=== PATIENT | female | born 1960 | race Hispanic/Latino ===

== ENCOUNTER 2019-03-05 14:13 | Outpatient (CLI) | payer MEDICARE ==
[~2019-03-05 14:13] MED LIST: Gadobenate Dimeglumine 529 MG/1 ML (20ML VIAL) ONE
[2019-03-05 16:05] LABS: Estimated GFR-MDRD - POC Greater than 90
--- NOTE | 2019-03-05 16:39 | MRI ---
MRI Brain W WO Con: 03/05/2019 12:00 AM CLINICAL HISTORY: Acute, non intractable headache. COMPARISON: None. FINDINGS: Extra axial spaces: Normal in size and morphology for the patient's age. Acute infarction: None. Ventricular system: Normal in size and morphology for the patient's age. Basal cisterns: Normal. Cerebral parenchyma: Microvascular ischemic changes. Midline shift: None. Cerebellum: Normal. Brainstem: Normal. Paranasal sinuses:Clear Intraaxial Enhancement: None IMPRESSION:No acute intracranial abnormality.
== END 2019-03-05 14:14 | disposition home or self-care (01) ==
LOC: BICMRI 14:13
PROVIDERS: ATTEND Physician Assistant
DX: R51 Headache (principal)
CPT/HCPCS: 70553; 82565; A9577

== ENCOUNTER 2019-04-03 09:19 | Outpatient (CLI) | payer MEDICARE ==
--- NOTE | 2019-04-03 09:43 | MMO ---
Bilateral MAMMO Bilat Screen [facility]. CLINICAL HISTORY: Patient is 58 years old and is seen for screening. The patient has no family history of breast cancer. The patient has no personal history of cancer. VIEWS: The views performed were: bilateral craniocaudal with tomosynthesis and bilateral mediolateral oblique with tomosynthesis. FILMS COMPARED: The present examination has been compared to prior imaging studies performed at [facility] on 02/10/2014, 02/11/2015, 02/13/2016 and 02/14/2017. MAMMOGRAM FINDINGS: There are scattered fibroglandular densities. There are no suspicious masses, suspicious calcifications, or new areas of architectural distortion. IMPRESSION: THERE IS NO MAMMOGRAPHIC EVIDENCE OF MALIGNANCY. A ROUTINE FOLLOW-UP MAMMOGRAM IN 1 YEAR IS RECOMMENDED. THE RESULTS OF THIS EXAM WERE SENT TO THE PATIENT. ACR BI-RADS Category 1 - Negative MAMMOGRAPHY NOTE: 1. A negative mammogram report should not delay a biopsy if a dominant of clinically suspicious mass is present. 2. Approximately 10% to 15% of breast cancers are not detected by mammography. 3. Adenosis and dense breasts may obscure an underlying neoplasm.
== END 2019-04-03 09:20 | disposition home or self-care (01) ==
LOC: BICMAMMO 09:19
PROVIDERS: ATTEND Physician Assistant
DX: Z12.31 Encounter for screening mammogram for malignant neoplasm of breast (principal)
CPT/HCPCS: 77063; 77067

== ENCOUNTER 2020-05-22 00:51 | Observation (INO) | payer MEDICARE ==
[2020-05-22 02:23] LABS: Troponin I Less than 0.010 ng/mL (< 0.028)
[2020-05-22] MEDS ORDERED: Dextrose 5% in Water 1,000 ML IV PRN (02:36)
[2020-05-22] MEDS ORDERED: Dextrose 50% Abboject 50 ML SYRINGE SLOW IVP PRN (02:36)
[2020-05-22 03:48] VITALS: BMI 26.9
--- NOTE | 2020-05-22 04:03 | HP ---
REASON FOR ADMISSION: Left-sided weakness and left chest burning-like sensation. HISTORY OF PRESENT ILLNESS: This is a 59-year-old female patient who is presenting with complaining of left-sided weakness, more in the upper extremity than the lower extremity. This weakness did resolve, but also she reported a few months sensation of chest discomfort described as burning like in nature, radiating to her left scapular area, radiating to her left arm. She described arm as getting tight and squeezed. The burning sensation is off and on, no exacerbating factors, no relieving factor, associated sometimes with some shortness of breath, not related to activity, can occur at rest. Today, the sensation was worse, which prompted her to go to the ER. Of note, the patient did describe low sugar levels of 50 mg/dL. PAST MEDICAL HISTORY: 1. Diabetes. 2. High blood pressure. 3. 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 SOCIAL HISTORY: She does not smoke. Does not drink alcohol. FAMILY HISTORY: Noncontributory. ALLERGIES: TO CODEINE WHICH GIVES HER A BURNING SENSATION IN HER BODY. REVIEW OF SYSTEMS: All systems reviewed except the above mentioned, found to be negative. PHYSICAL EXAMINATION: GENERAL: Awake, alert, oriented, does not appear in distress. VITAL SIGNS: Her blood pressure is 139/82, heart rate of 82, temperature is 98.2, saturating 99% on room air. HEENT: Head is atraumatic and normocephalic. Pupils are equal, reactive. Extraocular movements are intact. Nonicteric sclerae. Well injected conjunctivae. Oral mucosa normal. Nasal mucosa normal. NECK: Supple. No adenopathy. No murmur. Thyroid is not palpable. Trachea is midline. No supraclavicular adenopathy. HEART: S1, S2 regular. No murmur. No gallops. No friction rubs. No displacement of PMI. LUNGS: Clear to auscultation bilaterally. No wheezes or rhonchi. No crackles. ABDOMEN: Bowel sounds are positive. Tenderness upon palpation of the epigastric area. I can reproduce some of the burning sensation that she is experiencing. I am unable to reproduce chest pain whenever I put pressure on the left side of her chest. No lower extremity edema. No cyanosis noted. NEUROLOGIC: Cranial nerves 2 through 12 within normal limits. Normal motor function. Normal sensory function. LABORATORY DATA: Blood work shows WBC of 10.6, hemoglobin of 11.2, platelets . INR 1. Sodium of 142, potassium of 3.4, bicarb of 21, creatinine 0.67. A CT of the brain shows no acute disease. EKG pending. ASSESSMENT AND PLAN: This is a 59-year-old female patient presenting with multiple complaints, mainly burning involving her left chest area radiating to her back. Also today, a transient weakness of her left upper and lower extremity. The burning sensation has been ongoing for more than one month, but today as per her, it was worse. Cardiac: The patient will be admitted to telemetry, and we will cycle cardiac enzymes. We will schedule for a nuclear stress test in the morning. Neuro: The patient might have had a transient ischemic attack. We will schedule her for an MRI of the brain, carotid Doppler, echocardiogram. She will be on aspirin, and we will practice permissive hypertension. Endocrinology: The patient did report episodes of hypoglycemia. We will do glucose [id number] and will use an insulin sliding scale if need be. GI: I am able to elicit some of the pain that she is complaining of when I palpate her epigastric area. This pain might be GI related. For that reason, she will be on IV famotidine. I did discuss with her the plan of care. She is in agreement, and she wishes to be a full code. Job ID: [id number]
[2020-05-22 04:59] LABS: #Eosinphils 0.2 thou/uL (0.0-0.7); #Lymphocytes 2.7 thou/uL (1.20-3.40); #Monocytes 0.5 thou/uL (0.11-0.59); %Basophils 0.1 % (0.0-1.0); %Eosinophils 2.3 % (0.0-10.0); %Lymphocytes 32.1 % (21.0-51.0); %Monocytes 6.3 % (0.0-10.0); %Neutrophils 59.2 % (42.0-75.0); Mean Corpuscular HGB CONC 31.3 g/dL (32.0-36.0); Mean Corpuscular Hemoglobin 27.5 pg (27.0-31.0); Mean Corpuscular Volume 87.9 fL (78.0-98.0); Mean Platelet Volume 7.5 fL (7.4-10.4); Platelet Count 350 thou/uL (130-400); RBC Distribution Width 11.6 % (11.5-14.5); Red Blood Cell (RBC) Count 4.37 mill/uL (4.20-5.40); White Blood Cell (WBC) Count 8.5 thou/uL (4.8-10.8)
[2020-05-22 05:14] LABS: Anion Gap 10 mmol/L (10-20); BUN (Urea Nitrogen) 8 mg/dL (9.8-20.1); Calc. Creatinine Clearance 97 mL/min (70-130); Calcium 8.8 mg/dL (7.8-10.44); Carbon Dioxide 24 mmol/L (23-31); Cardiac Risk 2.6 (Less than 4.5); Chloride 109 mmol/L (98-107); Cholesterol 78 mg/dl (< 200 Desired); Estimated GFR-MDRD Greater than 90; Glucose 83 mg/dL (80-115); HDL Cholesterol 30 mg/dL (>60 Neg Risk); LDL Cholesterol, Calculated 36 mg/dL; Potassium 3.7 mmol/L (3.5-5.1); Sodium 139 mmol/L (136-145); Triglycerides 59 mg/dL (Less than 150)
[2020-05-22 05:16] LABS: Troponin I Less than 0.010 ng/mL (< 0.028)
[2020-05-22] MEDS: Aspirin 81 mg Enteric Coated Tablet PO SCH (08:56)
[2020-05-22] MEDS: Famotidine/PF 20 mg/2ml Vial SLOW IVP SCH ×2 (08:57→20:44)
[2020-05-22] MEDS ORDERED: Gabapentin 100 MG CAP PO SCH ×2 (09:41→09:45)
[2020-05-22] MEDS ORDERED: Calcium Carbonate 500 MG ChewTAB PO PRN (09:42)
--- NOTE | 2020-05-22 10:32 | MRI ---
MRI brain noncontrast HISTORY: TIA. Burning sensation throughout left arm and neck. FINDINGS: There is no evidence of acute intracranial hemorrhage or infarct. The ventricles appear nor mal in size, shape and position. There is no mass effect or shift of midline structures. Visualized paranasal sinuses remain well aerated. IMPRESSION : No abnormalities are demonstrated.
--- NOTE | 2020-05-22 11:12 | MRI ---
MRI cervical spine noncontrast HISTORY: Paresthesias. Burning sensation throughout the left arm and neck. FINDINGS: Vertebral body heights and alignment are maintained. Bone marrow signal within normal limit s. The spinal cord throughout the cervical levels has a normal appearance without evidence of compressio n, expansion, or abnormal signal. The central canal and neural foramina are patent. Minimal osteophytosis. IMPRESSION : No evidence of neural compression. No abnormalities are demonstrated.
--- NOTE | 2020-05-22 11:27 | ULT ---
ULTRASOUND DOPPLER DUPLEX CAROTID: DATE: 05/22/2020 HISTORY: 59-year-old female with left upper extremity weakness: TIA TECHNIQUE: Grayscale, color-flow, and spectral analysis, of major arteries of neck. FINDINGS: RIGHT: Atherosclerotic plaque:None. Mild intimal thickening present. Peak systolic and end diastolic velocities: CCA:85 cm/s, 25 cm/s ICA:80 cm/s, 40 cm/s ICA/CCA ratio:1.0 Vertebral artery flow:Antegrade LEFT: Atherosclerotic plaque:None. Mild intimal thickening present. Peak systolic and end diastolic velocities: CCA:75 cm/s, 25 cm/s ICA:75 cm/s, 20 cm/s ICA/CCA ratio:1.0 Vertebral artery flow:Antegrade IMPRESSION: No hemodynamically significant stenosis.
--- NOTE | 2020-05-22 13:26 | CON ---
NEUROLOGY CONSULTATION DATE OF CONSULTATION: 05/22/2020 REASON FOR CONSULTATION: Left-sided weakness and left-sided chest pain HISTORY OF PRESENT ILLNESS: Ms. Jaqueline Guadalupe is a 59-year-old female with history significant for diabetes, hypertension, and tumor of the large intestine , presented with left-sided weakness, more in the upper extremities than in the lower extremity. The weakness did resolve, but she also has intermittent sensation of burning chest pain radiating to the left shoulder and left arm. The patient denies any nausea, vomiting, headache, abdominal pain, vertigo, blurred vision, loss of vision and loss of consciousness associated with the episode. REVIEW OF SYSTEMS: All 14 systems were reviewed and were negative except the pertinent positive and negative mentioned in the HPI. PAST MEDICAL HISTORY: Diabetes, hypertension, tumor of the large intestine. SOCIAL HISTORY: Denies smoking, alcohol, or illegal drug use. FAMILY HISTORY: The family history is not significant for stroke. ALLERGIES: CODEINE. PHYSICAL EXAMINATION: GENERAL: Alert, awake female in no acute distress. VITAL SIGNS: Blood pressure 139/80, pulse 80, respiratory rate 18. CVS: Regular rate and rhythm. CHEST: Clear. ABDOMEN: Soft. NECK: No carotid bruit. NEUROLOGICAL: Mental status: The patient is alert and oriented to person, place, and time. Cranial nerves 2 through 12 intact. Motor, muscle tone and bulk are normal. Strength: Moving all 4 extremities equally and symmetrically. Cerebellar intact. Sensory intact. GAIT: Deferred due to patient's safety reasons. DATA REVIEWED: I reviewed the MRI of the brain, which did not reveal any acute intracranial pathology. Carotid Dopplers were also unremarkable. ASSESSMENT AND PLAN: Ms. Jaqueline Guadalupe is a 59-year-old female, who was consulted for an episode of chest pain and left-sided weakness, which has now almost resolved. She does have risk factors for stroke, most likely a transient ischemic attack. MRI of the brain reviewed which was negative for acute intracranial process. Carotid Doppler did not reveal any hemodynamically significant stenosis. Neuro checks every 4 hours. Recommend aspirin and high-intensity statin for secondary stroke prevention. Check fasting lipid panel, hemoglobin A1c, TSH, vitamin B12, folic acid, and TSH. Strict control of the blood pressure and blood glucose. Continue home medications. Continue medical management. Cardiology on board for chest pain.. Echocardiogram pending. PT/OT/Speech. We will continue to follow. Thank you for the consult. Job ID: [id number] MTDD
[2020-05-22] MEDS: Acetaminophen 325 MG TAB PO PRN (16:49)
--- NOTE | 2020-05-22 18:41 | PDOC.EVN ---
Event Note - Event Note Event Note: The patent reported burning in her abdomen radiating to her chest and left shoulder. SHe also states her left arm was weak. She also complains of headache but no nausea. She also had some dizziness earlier this morning Patient denies chest pain on exertion Stress test did not happen today because patient ate breakfast this morning She reports travel to [place] three weeks ago and had negative COVId test there and had another COVID test 9 days ago at [place], but doesn't know results. Denies fevers or chills. Has a dry cough that is worst with talking Vitals: stable gen: AXO x 3 CVS: RRR, no murmurs, rubs, gallops Lungs: CTAB Abdomen: + BS, soft, nontender, nondistended Ext: no edema Neuro: CN II - XII intact. No focal deficits. 5/5 strength in upper and lower extremities. She has full ROM of arms and legs Labs; normal. Trop negative MRI brain: no stroke MRI cervical spine: no stenosis This is 59 year old who presented with chest pain/abdominal pain Chest pain/abdominal pain - appears to be more GERD related. She was given protonix and stated that her burning sensation had improved - patient was offered discharge, but is worried about her heart. She wants to stay for stress test. Will make NPO after midnight Dizziness - MRI has ruled out stroke - currently it has resolved Left arm weakness - no weakness objective on exam. No pronator drift. MRI c spine negative for arthritis Headache - given tylenol Cough - possibly GERD related - continue PPI
[2020-05-22] MEDS: HumaLOG 300 UNITS/3 ML VIAL SC PRN ×2 (19:17→21:14)
[2020-05-22] MEDS ORDERED: Benzonatate 100 MG CAP PO PRN (19:56)
[2020-05-23] MEDS: Acetaminophen 325 MG TAB PO PRN ×2 (01:40→12:11)
[2020-05-23] MEDS ORDERED: Gabapentin 100 MG CAP PO SCH (09:00)
[2020-05-23 11:58] VITALS: BP 142/84; TEMP 98.2
[2020-05-23] MEDS: Aspirin 81 mg Enteric Coated Tablet PO SCH (12:11)
[2020-05-23] MEDS: Famotidine/PF 20 mg/2ml Vial SLOW IVP SCH (12:11)
[2020-05-23] MEDS: HumaLOG 300 UNITS/3 ML VIAL SC PRN ×2 (12:12→17:15)
[2020-05-23] MEDS ORDERED: ADENOSINE 60 MG/20 ML VIAL ONE (12:58)
--- NOTE | 2020-05-23 13:07 | NM ---
NUCLEAR MEDICINE CARDIAC MYOCARDIAL PERFUSION SPECT EJECTION FRACTION STUDY WALL MOTION CINE: DATE: 05/23/2020 HISTORY: 59 year old diabetic, hypertensive female presents with chest pain and dyspnea TECHNIQUE: Number of days: 1 Rest study: Technetium 99m-sestamibi (Cardiolite) dose: 9.1 mCi Pharmacologic stress: Adenosine dose: 34.7 mg Stress study: Technetium 99m-sestamibi (Cardiolite) dose: 28.4 mCi FINDINGS: CARDIAC (MYOCARDIAL PERFUSION) SPECT There are no reversible myocardial perfusion defects. EJECTION FRACTION STUDY Left ventricular EF = 83 % WALL MOTION CINE Normal. No chamber dilation. IMPRESSION: No evidence of reversible ischemia.
[2020-05-23] MEDS ORDERED: glipiZIDE 10 MG TAB PO SCH (16:30)
[2020-05-23] MEDS ORDERED: metFORMIN 500 MG TAB PO SCH (17:00)
--- NOTE | 2020-05-23 19:10 | DIS ---
DATE OF ADMISSION: 05/22/2020 DATE OF DISCHARGE: 05/23/2020 PRIMARY CARE PROVIDER: Gila Ibarra PA-C DISCHARGE DIAGNOSES: 1. Transient ischemic attack. 2. Chest pain most likely secondary to gastroesophageal reflux disease. CONSULTATIONS DURING THIS HOSPITALIZATION: Neurology, Dr. Bennett. CONDITION OF THE PATIENT ON THE DAY OF DISCHARGE: Stable. I assessed Ms. Guadalupe on the day of discharge. She reports chest pain is better. Vital signs are stable. S1 and S2 are heard, regular. Lungs are clear to auscultation bilaterally. DISCHARGE MEDICATIONS: She has been started on Lipitor 20 mg at bedtime. Otherwise, no change was made to her pre-admission home medications, which include aspirin 81 mg daily, glipizide 10 mg 2 times a day, Tresiba 20 units daily, losartan 50 mg daily, Glucophage 1000 mg 2 times a day, and calcium carbonate 500 mg daily. HOSPITAL COURSE: Ms. Guadalupe is a pleasant 59-year-old lady, who was admitted to [facility] on May 22, 2020 for chest pain and transient weakness of her left upper and lower extremity. She was seen by Neurology Service. MRI of the brain did not show any acute intracranial abnormality. Carotid Dopplers did not show any hemodynamically significant stenosis. Cervical spine MRI did not show any evidence of neural compression. Pulmonary embolism was ruled out with a negative D-dimer. Nuclear stress test did not show any evidence of reversible ischemia. Left ventricular ejection fraction was estimated at 83%. She also had 2D echocardiogram, which showed left ventricular ejection fraction estimated at 60% to 65%, normal right ventricular size and function, normal size left atrium, normal size right atrium, structurally normal mitral valve and mild mitral annular calcification. She was started on PPI for suspected gastroesophageal reflux disease. Her chest pain improved. She is being discharged home in a stable condition. POST-ACUTE CARE FOLLOWUP: With primary care provider in 3 days and with Neurology Service in 2 weeks. DIET: Diabetic and heart healthy. ACTIVITY: No restrictions. DISCHARGE DESTINATION: Home. Many thanks for allowing me to participate in your patient's care. Please feel free to contact me with any questions or concerns. Fasting lipid profile during this hospitalization showed triglycerides 59, cholesterol 78, LDL cholesterol 36, and HDL cholesterol 30. She is advised to have her liver function tests followed through her primary care provider's office. Job ID: [id number]
[2020-05-23] MEDS ORDERED: Atorvastatin Calcium 20 MG TAB PO SCH (21:00)
[2020-05-24] MEDS ORDERED: Calcium Carbonate 500 MG TAB PO SCH (09:00)
[2020-05-24] MEDS ORDERED: INSULIN DEGLUDEC 20 UNIT SC SCH (09:00)
[2020-05-24] MEDS ORDERED: Losartan 25 MG TAB PO SCH (09:00)
[2020-05-24] MEDS ORDERED: Insulin Glargine 20 UNITS in Pre-Filled Syringe 1 EACH SC SCH (09:00)
== END 2020-05-23 17:20 | disposition home or self-care (01) ==
LOC: ERS 00:51 → 2SE 01:44
PROVIDERS: ADMIT Internal Medicine; ATTEND Internal Medicine
DX: G45.9 Transient cerebral ischemic attack, unspecified (principal); R07.9 Chest pain, unspecified; K21.9 Gastro-esophageal reflux disease without esophagitis; E11.9 Type 2 diabetes mellitus without complications; I10 Essential (primary) hypertension; Z79.4 Long term (current) use of insulin; Z79.82 Long term (current) use of aspirin; Z79.899 Other long term (current) drug therapy; Z88.5 Allergy status to narcotic agent
CPT/HCPCS: 70551; 72141; 78452; 80048; 80061; 82962 ×2; 84484 ×2; 85025; 85379; 90732; 93017; 93306; 93880; 97139 ×3; 99285; A9500; G0009; 36415; 36416; 90471; 96374; 96376; G0378; J0153; S0028

== ENCOUNTER 2020-06-04 07:24 | Outpatient (CLI) | payer MEDICARE ==
--- NOTE | 2020-06-04 07:46 | ULT ---
Renal sonogram HISTORY: Chronic renal insufficiency. Right kidney measures up to 9.5 cm length and the left 9.8 cm. Each has a normal sonographic appearan ce without evidence of mass, stone, or hydronephrosis. Urinary bladder is unremarkable. No free fluid. IMPRESSION : No abnormalities are demonstrated.
== END 2020-06-04 07:25 | disposition home or self-care (01) ==
LOC: BICULT 07:24
PROVIDERS: ATTEND Internal Medicine Nephrology
DX: N18.2 Chronic kidney disease, stage 2 (mild) (principal); M54.9 Dorsalgia, unspecified
CPT/HCPCS: 76770

== ENCOUNTER 2020-10-01 10:05 | Outpatient (CLI) | payer MEDICARE ==
[2020-10-01 10:57] LABS: Estimated GFR-MDRD - POC Greater than 90
--- NOTE | 2020-10-01 15:05 | CT ---
CT ABDOMEN AND PELVIS WITH IV CONTRAST: Date: 10/01/2020 INDICATION: History of abdominal pain. COMPARISON: Prior exam dated 04/25/2018 and 02/26/2016. FINDINGS: There is a new pleural based pulmonary nodule within the posterolateral right lower lobe measuring 9. 0 mm on image 1 of series 2 that is incompletely characterized. No focal hepatic lesion is evident. Gallbladder is surgically absent. The pancreas, adrenal glands, spleen, and kidneys reveal no definite acute abnormality. There is a stable 1.5 cm lobulated hypodensity involving the left kidney that appears septated. No ne w focal renal lesion is evident. No free fluid or enlarged lymph nodes are evident. The small and large bowel reveal no acute abnormality. The appendix is not definitely seen. No free f luid is evident. Reproductive structures are unremarkable appearing. The bladder is partially decompr essed. The rectum and perirectal soft tissues are unremarkable appearing. There is diffuse osteopenia. IMPRESSION: 1. No CT explanation for patient's abdominal pain. 2. Septated cystic lesion involving the posterior left mid kidney is stable in size measuring 1.5 cm . 3. New pleural based nodule involving the posterior right lower lobe may reflect an area of dependen t subpleural subsegmental atelectasis. However, a new pulmonary nodule in the right lower lobe cannot be entirely excluded. Nonemergent follow-up CT of the thorax is recommended to document stability or resolution. CODE T. CODE LN. POS: [facility]
== END 2020-10-01 10:06 | disposition home or self-care (01) ==
LOC: BICCT 10:05
PROVIDERS: ATTEND Internal Medicine
DX: R10.84 Generalized abdominal pain (principal); R14.0 Abdominal distension (gaseous); N28.1 Cyst of kidney, acquired; R91.1 Solitary pulmonary nodule; Z85.038 Personal history of other malignant neoplasm of large intestine
CPT/HCPCS: 74177; 82565

== ENCOUNTER 2020-12-23 02:34 | Observation (INO) | payer MEDICARE, SELFPAY ==
[2020-12-23] MEDS ORDERED: Morphine 4 MG/ML VIAL SLOW IVP PRN (04:58)
[2020-12-23] MEDS ORDERED: Dextrose 50% Abboject 50 ML SYRINGE SLOW IVP PRN (04:59)
[2020-12-23] MEDS ORDERED: Dextrose 5% in Water 1,000 ML IV PRN (04:59)
[2020-12-23] MEDS ORDERED: Morphine 4 MG/ML VIAL SLOW IVP SCH (05:00)
[2020-12-23] MEDS ORDERED: Nitroglycerin 0.4 MG TAB (25 Tab Bottle) SL PRN (05:03)
--- NOTE | 2020-12-23 05:07 | PDOC.HHP ---
Hospitalist HPI Chest pain History of Present Illness: Patient is a 60 year old female with PMH HTN, DM, HLD who presents as transfer from [place] for chest pain. Patient has a year long history of on-and-off chest pain, however today she developed substernal chest pain that radiates to L neck and L arm, epigastric, burning/squeezing. Started one hour before arriving at ED. Patient has seen Dr Hamm and has been managed medically, unsure if she has had stress test. Has not had heart cath. Patient received aspirin and nitroglycerine and fentanyl with temporary relief of pain to 1/10 but is now back to 8/10 4 hours later. Patient EKG negative for acute STEMI, troponin x 1 negative, transferred here for further workup and care. Allergies/Adverse Reactions: Allergy/AdvReac Type Severity Reaction Status Date / Time codeine Allergy Intermediate ABDOMINAL Verified 02/26/16 19:21 PAIN, FLUSHED Home Medications: Medication Instructions Recorded Confirmed Type metFORMIN HCl [Glucophage] 1,000 mg PO BID-WM 02/08/16 05/22/20 History Aspirin [Ecotrin Low Strength] 81 mg PO DAILY 05/23/20 05/23/20 History Atorvastatin Calcium [Lipitor] 20 mg PO HS #30 tab 05/23/20 Rx Calcium Carbonate [Calcium] 500 mg PO DAILY #0 05/23/20 05/23/20 Rx Insulin Degludec [Tresiba 20 units SC DAILY 05/23/20 05/23/20 History Flextouch U-200] Losartan Potassium [Cozaar] 50 mg PO DAILY 05/23/20 05/23/20 History Pantoprazole [Protonix] 40 mg PO DAILY #30 tab 05/23/20 Rx glipiZIDE [Glipizide] 10 mg PO BID 05/23/20 05/23/20 History Past History: PMHx: HLD, DM PSHx: polyp removal, cholecystectomy, tubal ligation, benign tumor removal FHx: reviewed and not relevant Social: denies tobacco, alcohol, drug use Hospitalist HPI ROS Constitutional: denies: fever, chills, sweats, weakness, malaise, other Eyes: denies: pain, vision change, conjunctivae inflammation, eyelid inflammation, redness, other ENT: denies: ear pain, ear discharge, nose pain, nose discharge, nose congestion, mouth pain, mouth swelling, throat pain, throat swelling, other Respiratory: denies: cough, dry, shortness of breath, hemoptysis, SOB with excertion, pleuritic pain, sputum, wheezing, other Cardiovascular: reports: chest pain. denies: palpitations, orthopnea, paroxysmal noc. dyspnea, edema, light headedness, other Gastrointestinal: denies: nausea, vomiting, abdominal pain, diarrhea, constipation, melena, hematochezia, other Genitourinary: denies: dysuria, frequency, incontinence, hematuria, retention, other Musculoskeletal: reports: neck pain, arm pain. denies: shoulder pain, back pain, hand pain, leg pain, foot pain, other Skin: denies: rash, lesions, armando, bruising, other Neurological: denies: weakness, numbness, incoordination, change in speech, confusion, seizures, other All other systems reviewed; all pertinent +/- noted in HPI/Subj Hospitalist Exam Vitals: 0113: BP 154/91, pulse 78, rr 16, o2 98% on RA General Appearance: NAD, awake alert Eye: PERRL, anicteric sclera ENT: normocephalic atraumatic, no oropharyngeal lesions, moist mucosa Neck: supple, symmetric, no JVD, no thyromegaly, no lymphadenopathy, no carotid bruit Heart: RRR, no murmur, no gallops, no rubs, normal peripheral pulses Respiratory: CTAB, no wheezes, no rales, no ronchi, normal chest expansion, no tachypnea, normal percussion Gastrointestinal: soft, non-tender, non-distended, normal bowel sounds, no palpable masses, no hepatomegaly, no splenomegaly, no bruit Extremities: no cyanosis, no clubbing, no edema Skin: normal turgor, no lesions, no rashes Neurological: cranial nerve grossly intact, normal sensation to touch, no weakness, no focal deficits, no new deficit Musculoskeletal: normal tone, normal strength, no muscle wasting Psychiatric: normal affect, normal behavior, A&O x 3 Hospitalist Results Additional comment: transfer documents reviewed including EKG, labs, ED provider documents EKG NSR rate [address] changes, Hospitalist H&P A/P Plan: Patient is a 60 year old female with PMH HTN, DM, HLD who presents as transfer from [place] for chest pain. # chest pain - intermittent, current episode worse than normal and radiates to neck and arm, patient has seen Dr Hamm and has been managed medically, no history of heart cath that patient can remember. Patient EKG negative for acute STEMI, troponin x 1 negative, received ASA, nitro, transferred here for further workup and care. - admit to telemetry - asa, statin, nitropaste, morphine PRN - NPO - consult cardiology # DM - takes long [id number] units daily - start SSI + half dose insulin while NPO, raise to full dose once eating # HTN - PRN medications available, resume home medications once med rec complete # HLD - statin DVT/GI ppx
[2020-12-23 05:44] LABS: #Eosinphils 0.1 thou/uL (0.0-0.7); #Lymphocytes 2.4 thou/uL (1.20-3.40); #Monocytes 0.5 thou/uL (0.11-0.59); %Basophils 0.1 % (0.0-1.0); %Eosinophils 0.6 % (0.0-10.0); %Lymphocytes 24.4 % (21.0-51.0); %Monocytes 4.8 % (0.0-10.0); %Neutrophils 70.1 % (42.0-75.0); Hemoglobin 12.8 g/dL (12.0-16.0); Mean Corpuscular HGB CONC 30.9 g/dL (32.0-36.0); Mean Corpuscular Hemoglobin 26.3 pg (27.0-31.0); Mean Corpuscular Volume 85.4 fL (78.0-98.0); Mean Platelet Volume 7.6 fL (7.4-10.4); Platelet Count 326 thou/uL (130-400); RBC Distribution Width 11.2 % (11.5-14.5); Red Blood Cell (RBC) Count 4.86 mill/uL (4.20-5.40); White Blood Cell (WBC) Count 9.9 thou/uL (4.8-10.8)
[2020-12-23] MEDS: Nitroglycerin 2% Ointment 1 INCH/1 GM Packet TOP SCH ×3 (05:46→15:32)
[2020-12-23] MEDS: Acetaminophen 325 MG TAB PO PRN ×2 (05:46→15:32)
[2020-12-23] MEDS: HumaLOG 300 UNITS/3 ML VIAL SC PRN ×3 (06:01→22:17)
[2020-12-23 06:04] LABS: Anion Gap 9 mmol/L (10-20); BUN (Urea Nitrogen) 10 mg/dL (9.8-20.1); Calc. Creatinine Clearance 0 mL/min (70-130); Carbon Dioxide 28 mmol/L (23-31); Chloride 105 mmol/L (98-107); Glucose 256 mg/dL (80-115); Potassium 3.9 mmol/L (3.5-5.1); Sodium 138 mmol/L (136-145)
[2020-12-23 06:10] LABS: Troponin I Less than 0.010 ng/mL (< 0.028)
[2020-12-23 08:29] VITALS: BMI 26.4
[2020-12-23] MEDS ORDERED: Meclizine HCl 12.5 MG TAB PO PRN (08:43)
[2020-12-23] MEDS ORDERED: Bisacodyl 5 MG TAB PO PRN (08:44)
[2020-12-23] MEDS ORDERED: Zolpidem Tartrate 5 MG TAB PO PRN (08:44)
[2020-12-23] MEDS ORDERED: hydrALAZINE 20 MG/ML VIAL SLOW IVP PRN (08:44)
[2020-12-23] MEDS ORDERED: Senokot S 8.6-50 MG TAB PO PRN (08:44)
[2020-12-23] MEDS ORDERED: Benzonatate 100 MG CAP PO PRN (08:44)
[2020-12-23] MEDS ORDERED: Ondansetron PF 4 MG/2 ML Vial IVP PRN (08:44)
[2020-12-23] MEDS ORDERED: Sodium Chloride 0.65% Nasal 44 ML BOT EA NARE PRN (08:44)
[2020-12-23] MEDS ORDERED: Loperamide HCl 2 MG CAP PO PRN (08:44)
[2020-12-23] MEDS ORDERED: Calcium Carbonate 500 MG ChewTAB PO PRN (08:44)
[2020-12-23] MEDS ORDERED: Loratadine 10 MG TAB PO PRN (08:44)
[2020-12-23] MEDS ORDERED: Ondansetron ODT 4 MG TAB PO PRN (08:44)
[2020-12-23] MEDS ORDERED: Cepastat Lozenges 1 LOZ PO PRN (08:44)
[2020-12-23] MEDS ORDERED: GUAIFENESIN SF SOLN 200 MG/10 ML UDCUP PO PRN (08:44)
[2020-12-23] MEDS ORDERED: Losartan 25 MG TAB PO SCH (09:00)
[2020-12-23] MEDS ORDERED: Metoprolol Tartrate 25 MG TAB PO SCH (09:00)
[2020-12-23] MEDS: glipiZIDE 10 MG TAB PO SCH ×2 (09:00→22:10)
[2020-12-23] MEDS: Enoxaparin Sodium 40 MG/0.4 ML SYRINGE SC SCH (09:55)
[2020-12-23] MEDS: Aspirin Chewable 81 MG TAB PO SCH (09:56)
--- NOTE | 2020-12-23 13:10 | PDOC.HOSPP ---
- Subjective Encounter Date: 12/23/20 Encounter Time: 10:00 Subjective: Patient seen and examined. No new complaints. No overnight events, patient has chest wall discomfort, no radiation, - Objective Vital Signs & Weight: Vital Signs (12 hours) Temp Pulse Resp BP Pulse Ox 12/23/20 03:37 98.0 F 78 18 119/67 98 Weight Weight 135 lb 7 oz I&O: 12/22/20 12/23/20 12/24/20 06:59 06:59 06:59 Intake Total 70 Output Total 0 Balance 70 Result Diagrams: 12/23/20 05:38 12/23/20 05:38 Additional Labs: Accuchecks 12/23/20 12/23/20 11:13 05:33 POC Glucose 77 252 H Radiology Reviewed by me: Yes EKG Reviewed by me: Yes Hospitalist ROS - Review of Systems ENT: denies: ear pain, ear discharge, nose pain, nose discharge, nose congestion, mouth pain, mouth swelling, throat pain, throat swelling, other Respiratory: denies: cough, dry, shortness of breath, hemoptysis, SOB with excertion, pleuritic pain, sputum, wheezing, other Cardiovascular: denies: chest pain, palpitations, orthopnea, paroxysmal noc. dyspnea, edema, light headedness, other Gastrointestinal: denies: nausea, vomiting, abdominal pain, diarrhea, constipation, melena, hematochezia, other Genitourinary: denies: dysuria, frequency, incontinence, hematuria, retention, other Musculoskeletal: denies: neck pain, shoulder pain, arm pain, back pain, hand pain, leg pain, foot pain, other - Medication Medications: Active Medications Generic Name Dose Route Start Last Admin Trade Name Freq PRN Reason Stop Dose Admin Acetaminophen 650 mg 12/23/20 04:45 12/23/20 05:46 Acetaminophen 325 Mg Tab PO 650 mg Q6H PRN Administration headache, pain, fever Aspirin 81 mg 12/23/20 09:00 12/23/20 09:56 Aspirin Chewable 81 Mg Tab PO 81 mg DAILY ASHWINI Administration Enoxaparin Sodium 40 mg 12/23/20 09:00 12/23/20 09:55 Enoxaparin Sodium 40 Mg/0.4 Ml Syringe SC 40 mg 0900 ASHWINI Administration Insulin Human Lispro 0 units 12/23/20 04:59 12/23/20 06:01 Humalog 300 Units/3 Ml Vial SC 4 unit .MILD SLIDING SCALE PRN Administration Mild Correctional Scale Losartan Potassium 50 mg 12/23/20 09:00 12/23/20 09:56 Losartan 25 Mg Tab PO 50 mg DAILY ASHWINI Administration Metoprolol Tartrate 12.5 mg 12/23/20 09:00 12/23/20 09:57 Metoprolol Tartrate 25 Mg Tab PO 12.5 mg BID ASHWINI Administration Nitroglycerin 0.5 inch 12/23/20 06:00 12/23/20 05:46 Nitroglycerin 2% Ointment 1 Inch/1 Gm Packet TOP 0.5 inch Q8HR ASHWINI Administration Pantoprazole Sodium 40 mg 12/23/20 09:00 12/23/20 09:58 Pantoprazole 40 Mg Tab PO 40 mg DAILY ASHWINI Administration Hospitalist Exam Vitals: Vital Signs (12 hours) Temp Pulse Resp BP Pulse Ox 12/23/20 03:37 98.0 F 78 18 119/67 98 Weight Weight 135 lb 7 oz General Appearance: NAD, awake alert Eye: PERRL, anicteric sclera ENT: normocephalic atraumatic, no oropharyngeal lesions Neck: supple, symmetric, no JVD, no thyromegaly Heart: RRR, no murmur, no gallops, no rubs Respiratory: no wheezes, no rales, no ronchi Gastrointestinal: soft, non-tender, non-distended, normal bowel sounds Extremities: no cyanosis, no clubbing, no edema Skin: normal turgor, no lesions Neurological: no focal deficits Musculoskeletal: normal tone, normal strength Psychiatric: normal affect, normal behavior Hosp A/P (1) Chest pain Code(s): R07.9 - CHEST PAIN, UNSPECIFIED Status: Acute (2) Diabetes type 2, controlled Code(s): E11.9 - TYPE 2 DIABETES MELLITUS WITHOUT COMPLICATIONS Status: Chronic Qualifiers: Diabetes mellitus alf insulin use: with dedicated intermodal truck driver use Diabetes mellitus complication status: without complication Qualified Code(s): E11.9 - Type 2 diabetes mellitus without complications; Z79.4 - medical terminologist (current) use of insulin (3) Dyslipidemia Code(s): E78.5 - HYPERLIPIDEMIA, UNSPECIFIED Status: Chronic (4) Hypertension Code(s): I10 - ESSENTIAL (PRIMARY) HYPERTENSION Status: Chronic (5) GERD (gastroesophageal reflux disease) Code(s): K21.9 - GASTRO-ESOPHAGEAL REFLUX DISEASE WITHOUT ESOPHAGITIS Status: Chronic Qualifiers: Esophagitis presence: with esophagitis Esophagitis bleeding: without hemorrhage Qualified Code(s): K21.00 - Gastro-esophageal reflux disease with esophagitis, without bleeding - Plan old records reviewed/req, plan discussed w/ family Cardiology has been consulted, Further investigation will defer to cardiology If cardiology clears her then will consider discharge Medication reviewed and continue provide symptomatic and supportive care
--- NOTE | 2020-12-23 13:14 | PDOC.DS.DS ---
Provider Date of Admission: 12/23/20 04:19 Date of Discharge: 12/24/20 Admitting Provider: Mckay Barreto MD Consultations: Cardiology Primary Care Physician: JENNI Silverio Course Hospital Course: Patient was admitted for chest pain, her chest pain description was atypical and sounds like musculoskeletal, on admission EKG was negative for any acute ischemic changes, subsequently on telemetry floor telemetry remained unremarkable, she had serial cardiac enzymes which were negative, cardiology was consulted,. Cardiology evaluated this patient and cleared for discharge, no investigation planned, patient remained stable overnight, she did not any further chest pain. Patient seen and examined bedside today she will continue all her previous medication after discharge. Resuscitation Status: 12/23/20 05:03 Resuscitation Status Routine Resuscitation Status: FULL: Full Resuscitation Lab Results: 12/23/20 05:38 12/23/20 05:38 Abnormal Lab Results - Last 48 hrs 12/23/20 05:38: Anion Gap 9 L 12/23/20 05:38: MCH 26.3 L, MCHC 30.9 L, RDW 11.2 L, Neutrophils # 7.0 H Vitals: Vital Signs (12 hours) Temp Pulse Resp BP Pulse Ox 12/23/20 03:37 98.0 F 78 18 119/67 98 Weight Weight 135 lb 7 oz Physical Exam: The patient was seen and examined on the day of discharge. General Appearance: NAD, awake alert Eye: PERRL, anicteric sclera ENT: normocephalic atraumatic, no oropharyngeal lesions Neck: supple, symmetric, no JVD, no thyromegaly Respiratory: no wheezes, no rales, no ronchi Cardiovascular: RRR, no murmur, no gallops, no rubs Gastrointestinal: soft, non-tender, non-distended, normal bowel sounds Extremities: no cyanosis, no clubbing, no edema Skin: normal turgor, no lesions Neurological: no focal deficits Musculoskeletal: normal tone, normal strength PSYCH: normal affect, normal behavior, A&O x 3 Problem (1) Chest pain Code(s): R07.9 - CHEST PAIN, UNSPECIFIED Status: Resolved Plan: Due to musculoskeletal etiology (2) Diabetes type 2, controlled Code(s): E11.9 - TYPE 2 DIABETES MELLITUS WITHOUT COMPLICATIONS Status: Chronic Qualifiers: Diabetes mellitus halfway insulin use: with halfway use Diabetes mellitus complication status: without complication Qualified Code(s): E11.9 - Type 2 diabetes mellitus without complications; Z79.4 - FPC (current) use of insulin (3) Dyslipidemia Code(s): E78.5 - HYPERLIPIDEMIA, UNSPECIFIED Status: Chronic (4) Hypertension Code(s): I10 - ESSENTIAL (PRIMARY) HYPERTENSION Status: Chronic (5) GERD (gastroesophageal reflux disease) Code(s): K21.9 - GASTRO-ESOPHAGEAL REFLUX DISEASE WITHOUT ESOPHAGITIS Status: Chronic Qualifiers: Esophagitis presence: with esophagitis Esophagitis bleeding: without hemorrhage Qualified Code(s): K21.00 - Gastro-esophageal reflux disease with esophagitis, without bleeding Plan Prescriptions: Aspirin Chewable [Aspirin Chewable Tablet] 81 mg PO DAILY #30 tab Home Medications: Medication Instructions Recorded Confirmed Type metFORMIN HCl [Glucophage] 1,000 mg PO BID- 02/08/16 12/23/20 History Aspirin [Ecotrin Low Strength] 81 mg PO DAILY 05/23/20 12/23/20 History Atorvastatin Calcium [Lipitor] 20 mg PO HS #30 tab 05/23/20 12/23/20 Rx Losartan Potassium [Cozaar] 50 mg PO DAILY 05/23/20 12/23/20 History Pantoprazole [Protonix] 40 mg PO DAILY #30 tab 05/23/20 12/23/20 Rx glipiZIDE [Glipizide] 10 mg PO BID 05/23/20 12/23/20 History Acetaminophen [Tylenol] 650 mg PO Q8H PRN 12/23/20 12/23/20 History Aspirin Chewable [Aspirin Chewable 81 mg PO DAILY #30 tab 12/23/20 Rx Tablet] Ibuprofen 200 mg PO Q8H PRN 12/23/20 12/23/20 History Meclizine HCl 12.5 mg PO DAILY PRN 12/23/20 12/23/20 History Allergies: codeine Allergy (Intermediate, Verified 12/23/20 07:52) ABDOMINAL PAIN, FLUSHED Activity:: Activity as Tolerated Nourishment:: Diabetic Diet Therapies:: Not Applicable Equipment/Supplies:: Not Applicable IV Therapy:: Not Applicable Referrals: Gila Ibarra PA [Primary Care Provider] - 7 Days (Please follow up with your primary care provider in 7days. Call the office to schedule an appointment.) Scooby Hamm MD [Active] - 2-3 Weeks (Please follow up with your international account manager in 2-3 weeks or call with any questions.) Disposition: HOME Quality CORE MEASURES:: N/A
[2020-12-23] MEDS: Sodium Chloride 0.9% 1,000 ML IV SCH (18:24)
--- NOTE | 2020-12-23 19:00 | CON ---
DATE OF CONSULTATION: 12/23/2020 REASON FOR CONSULTATION: Chest pain. HISTORY OF PRESENT ILLNESS: Ms. Guadalupe is a pleasant 60-year-old, whom I have seen and evaluated in the past. She recently presented with chest pain. Chest pain is mainly in the left axillary region. She states it is worse with lifting her left arm. She has had a negative stress test in the past. EKG was felt to be within normal limits. PAST MEDICAL HISTORY: Hyperlipidemia, diabetes mellitus, cholecystectomy, BTL, benign tumor removal. SOCIAL HISTORY: No current tobacco or alcohol use. REVIEW OF SYSTEMS: A 10-point review of systems is reviewed as above, otherwise negative. PHYSICAL EXAMINATION: GENERAL: Patient is a pleasant female, who is in no acute distress. The patient appears their stated age. VITAL SIGNS: Blood pressure 104/61, pulse 64, temperature afebrile. NEUROLOGIC: The patient is alert and oriented x3 with no focal neurologic deficits. HEENT: Sclerae without icterus. Mouth has moist mucous membranes with normal pallor. NECK: No JVD. Carotid upstroke brisk. No bruits bilaterally. LUNGS: Clear to auscultation with unlabored respirations. BACK: No scoliosis or kyphosis. CARDIAC: Regular rate and rhythm with normal S1 and S2. No S3 or S4 noted. No significant rubs, murmurs, thrills, or gallops noted throughout the precordium. PMI is not displaced. There is no parasternal heave. ABDOMEN: Soft, nontender, nondistended. No peritoneal signs present. No hepatosplenomegaly. No abnormal striae. EXTREMITIES: 2+ femoral and 2+ dorsalis pedis pulses. No cyanosis, clubbing, or edema. SKIN: No gross abnormalities. PERTINENT LABORATORY DATA: CK and troponin negative. EKG, normal sinus rhythm with no ST-T wave changes suggestive of ischemia. IMPRESSION: Atypical chest pain. RECOMMENDATIONS: Ms. Guadalupe has had a recent stress study performed in May of 2020 that was felt to be negative for ischemia. LVEF 83%. Her symptoms were felt to be musculoskeletal. Pain is worse with lifting her left arm. It would be okay from my standpoint to discharge home with nonsteroidal therapy in addition to PPI. Job ID: [id number]
[2020-12-23] MEDS ORDERED: Insulin Glargine 10 UNITS in Pre-Filled Syringe 1 EACH SC SCH (21:00)
[2020-12-23] MEDS ORDERED: Atorvastatin Calcium 40 MG TAB PO SCH (21:00)
[2020-12-24 05:04] LABS: Cardiac Risk 3.6 (Less than 4.5)
[2020-12-24] MEDS: HumaLOG 300 UNITS/3 ML VIAL SC PRN (05:55)
[2020-12-24 07:59] VITALS: BP 135/83; TEMP 98.4
[2020-12-24] MEDS: Enoxaparin Sodium 40 MG/0.4 ML SYRINGE SC SCH (09:00)
[2020-12-24] MEDS: glipiZIDE 10 MG TAB PO SCH (09:01)
[2020-12-24] MEDS: Acetaminophen 325 MG TAB PO PRN (09:01)
[2020-12-24] MEDS: Aspirin Chewable 81 MG TAB PO SCH (09:01)
[2020-12-24] MEDS: Sodium Chloride 0.9% 1,000 ML IV SCH (11:20)
== END 2020-12-24 10:40 | disposition home or self-care (01) ==
LOC: 2NO 04:19
PROVIDERS: ADMIT Internal Medicine; ATTEND Internal Medicine
DX: R07.89 Other chest pain (principal); E11.9 Type 2 diabetes mellitus without complications; E78.5 Hyperlipidemia, unspecified; I10 Essential (primary) hypertension; K21.00 Gastro-esophageal reflux disease with esophagitis, without bleeding; Z79.4 Long term (current) use of insulin; Z79.82 Long term (current) use of aspirin; Z79.899 Other long term (current) drug therapy; Z88.5 Allergy status to narcotic agent
CPT/HCPCS: 36415; 36416; 80061; 96372; 96374; G0378; J1650; J1815; J2270

== ENCOUNTER 2021-01-08 14:10 | Outpatient (CLI) | payer MEDICARE ==
--- NOTE | 2021-01-08 14:45 | MMO ---
Bilateral MAMMO Bilat Screen [facility]. CLINICAL HISTORY: Patient is 60 years old and is seen for screening. The patient has no family history of breast cancer. The patient has no personal history of cancer. VIEWS: The views performed were: bilateral craniocaudal with tomosynthesis and bilateral mediolateral oblique with tomosynthesis. FILMS COMPARED: The present examination has been compared to prior imaging studies performed at [facility] on 02/11/2015, 02/13/2016, 02/14/2017 and 04/03/2019. This study has been interpreted with the assistance of computer-aided detection. MAMMOGRAM FINDINGS: There are scattered fibroglandular densities. There are benign appearing calcifications seen in the posterior of the right breast. There are no suspicious masses, suspicious calcifications, or new areas of architectural distortion. IMPRESSION: THERE IS NO MAMMOGRAPHIC EVIDENCE OF MALIGNANCY. A ROUTINE FOLLOW-UP MAMMOGRAM IN 1 YEAR IS RECOMMENDED. THE RESULTS OF THIS EXAM WERE SENT TO THE PATIENT. ACR BI-RADS Category 2 - Benign finding MAMMOGRAPHY NOTE: 1. A negative mammogram report should not delay a biopsy if a dominant of clinically suspicious mass is present. 2. Approximately 10% to 15% of breast cancers are not detected by mammography. 3. Adenosis and dense breasts may obscure an underlying neoplasm. Reported by: YAIR VELAZQUEZ MD Electonically Signed: [id number]
== END 2021-01-08 14:11 | disposition home or self-care (01) ==
LOC: BICMAMMO 14:10
PROVIDERS: ATTEND Physician Assistant
DX: Z12.31 Encounter for screening mammogram for malignant neoplasm of breast (principal)
CPT/HCPCS: 77063; 77067

== ENCOUNTER 2021-02-26 08:36 | Outpatient (CLI) | payer MEDICARE | END 2021-02-26 08:37 | disposition home or self-care (01) | LOC: BICMRI 08:36 | PROVIDERS: ATTEND Physician Assistant | DX: M51.26 Other intervertebral disc displacement, lumbar region (principal); M47.816 Spondylosis without myelopathy or radiculopathy, lumbar region | CPT/HCPCS: 72148 ==

== ENCOUNTER 2021-07-07 08:32 | Outpatient (CLI) | payer MEDICARE | END 2021-07-07 08:33 | disposition home or self-care (01) | LOC: BICULT 08:32 | PROVIDERS: ATTEND Internal Medicine Nephrology | DX: I12.9 Hypertensive chronic kidney disease with stage 1 through stage 4 chronic kidney disease, or unspecified chronic kidney disease (principal); N18.2 Chronic kidney disease, stage 2 (mild) | CPT/HCPCS: 76770 ==

== ENCOUNTER 2021-09-30 07:17 | Outpatient (CLI) | payer MEDICARE | END 2021-09-30 07:18 | disposition home or self-care (01) | LOC: BICMRI 07:17 | PROVIDERS: ATTEND Physician Assistant | DX: R51.9 Headache, unspecified (principal); I67.82 Cerebral ischemia | CPT/HCPCS: 70553 ==

== ENCOUNTER 2024-10-26 17:56 | Observation (INO) | payer MEDICARE ==
[2024-10-26 21:56] VITALS: BMI 26.3
[2024-10-26] MEDS ORDERED: Nitroglycerin 0.4 MG TAB (25 Tab Bottle) SL PRN (23:11)
[2024-10-26] MEDS ORDERED: Ondansetron PF 4 MG/2 ML Vial IVP PRN (23:11)
[2024-10-26] MEDS ORDERED: Insulin Lispro 100 UNIT/ML 10 ML VIAL SC PRN ×2 (23:13)
[2024-10-26] MEDS ORDERED: Dextrose 50% Abboject 50 ML SYRINGE SLOW IVP PRN (23:13)
[2024-10-26] MEDS ORDERED: Glucagon 1 MG/ML KIT IM PRN (23:13)
[2024-10-26] MEDS ORDERED: Fioricet 325/50/40 mg Tablet PO PRN (23:30)
[2024-10-26 23:50] LABS: Troponin I Less than 0.010 ng/mL (< 0.028)
[2024-10-27 04:27] LABS: #Basophils 0.04 10x3/uL (0.0-0.2); %Basophils 0.5 % (0.0-1.0); %Eosinophils 2.3 % (0.0-10.0); %Lymphocytes 36.6 % (21.0-51.0); %Monocytes 7.4 % (0.0-10.0); %Neutrophils 52.8 % (42.0-75.0); Hematocrit 34.9 % (36.0-47.0); Hemoglobin 11.8 g/dL (12.0-16.0); Mean Corpuscular HGB CONC 33.8 g/dL (32.0-36.0); Mean Corpuscular Hemoglobin 28.2 pg (27.0-31.0); Mean Corpuscular Volume 83.3 fL (78.0-98.0); Mean Platelet Volume 9.9 fL (7.4-10.4); Platelet Count 322 10x3/uL (130-400); RBC Distribution Width 12.3 % (11.5-14.5); Red Blood Cell (RBC) Count 4.19 mill/uL (4.20-5.40)
[2024-10-27 04:41] LABS: Hemoglobin A1c 8.5 % (4.0-6.0)
[2024-10-27 04:48] LABS: Troponin I Less than 0.010 ng/mL (< 0.028)
[2024-10-27 04:50] LABS: Anion Gap 10 mmol/L (10-20); BUN (Urea Nitrogen) 10 mg/dL (9.8-20.1); Calc. Creatinine Clearance 86 mL/min (70-130); Calcium 8.9 mg/dL (7.8-10.44); Carbon Dioxide 24 mmol/L (23-31); Cardiac Risk 2.9 (Less than 4.5); Chloride 110 mmol/L (98-107); Cholesterol 89 mg/dl (< 200 Desired); Estimated GFR 98; Glucose 120 mg/dL (80-115); HDL Cholesterol 31 mg/dL (>60 Neg Risk); LDL Cholesterol, Calculated 46 mg/dL; Potassium 3.5 mmol/L (3.5-5.1); Sodium 140 mmol/L (136-145); Triglycerides 62 mg/dL (Less than 150)
[2024-10-27] MEDS: Dextrose 5% in Water 1,000 ML IV PRN (06:42)
[2024-10-27] MEDS ORDERED: Insulin Glargine 30 UNITS/0.3 ML VIAL SC SCH (09:00)
[2024-10-27] MEDS ORDERED: Famotidine 20 MG TAB PO SCH (09:00)
[2024-10-27] MEDS: Losartan 25 MG TAB PO SCH (09:28)
[2024-10-27] MEDS: Pantoprazole DR 40 MG TAB PO SCH (09:28)
[2024-10-27] MEDS: Aspirin Chewable 81 MG TAB PO SCH (09:28)
[2024-10-27] MEDS ORDERED: Regadenoson 0.4 MG/5 ML SYRINGE ONE (11:06)
[2024-10-27 17:31] VITALS: BP 148/74; TEMP 98.4
[2024-10-27] MEDS: Acetaminophen 325 MG TAB PO PRN (17:50)
[2024-10-27] MEDS ORDERED: Atorvastatin Calcium 20 MG TAB PO SCH (21:00)
[2024-10-28] MEDS ORDERED: Insulin Glargine 30 UNITS/0.3 ML VIAL SC SCH (09:00)
== END 2024-10-27 19:45 | disposition home or self-care (01) ==
LOC: 2SE 21:31
PROVIDERS: ADMIT Internal Medicine; ATTEND Hospitalist
DX: R07.9 Chest pain, unspecified (principal); I10 Essential (primary) hypertension; E78.5 Hyperlipidemia, unspecified; E11.9 Type 2 diabetes mellitus without complications; H53.8 Other visual disturbances; R51.9 Headache, unspecified; Z90.49 Acquired absence of other specified parts of digestive tract; Z98.51 Tubal ligation status; Z88.5 Allergy status to narcotic agent; Z79.84 Long term (current) use of oral hypoglycemic drugs; Z79.899 Other long term (current) drug therapy; Z79.82 Long term (current) use of aspirin; Z79.4 Long term (current) use of insulin
CPT/HCPCS: 70551; 71045; 78452; 80048; 80061; 82962; 83036; 84484 ×2; 85025; 93017; 94760 ×2; A9502; G0378; J2785 ×2; J7070; 36415; 36416; 93005; 93010

== ENCOUNTER 2024-11-11 09:30 | Outpatient (CLI) | payer MEDICARE | END 2024-11-11 09:31 | disposition home or self-care (01) | LOC: BICMAMMO 09:30 | PROVIDERS: ATTEND Physician Assistant | DX: Z12.31 Encounter for screening mammogram for malignant neoplasm of breast (principal) | CPT/HCPCS: 77063; 77067 ==

== ENCOUNTER 2024-12-25 08:48 | Outpatient (CLI) | payer MEDICARE ==
[2024-12-25] MEDS ORDERED: Iopamidol 370 76% 100 ML VIAL ONE (09:50)
== END 2024-12-25 08:49 | disposition home or self-care (01) ==
LOC: CT 08:48
PROVIDERS: ATTEND Physician Assistant Medical
DX: K29.70 Gastritis, unspecified, without bleeding (principal); B96.81 Helicobacter pylori [H. pylori] as the cause of diseases classified elsewhere; R10.12 Left upper quadrant pain; R10.32 Left lower quadrant pain; R19.4 Change in bowel habit; N28.9 Disorder of kidney and ureter, unspecified
CPT/HCPCS: 74177; 82565; Q9967